=== PATIENT | female | born 1990 | race Caucasian/White ===

== ENCOUNTER 2016-08-26 12:54 | Emergency (ER) | payer OTHER ==
[~2016-08-26] VITALS: Ht 160 cm; Wt 94.0 kg
[~2016-08-26 12:54] MED LIST: BUPR-197 PO; CIPR500T4 PO; CLIN1CAP5 PO; FERR325T PO; LORA-474 PO; LORTA5 PO; PROT40TA PO; Z.0.BCPILL PO
[2016-08-26 13:10] VITALS: BP 145/88; PULSE 110; RESP 16; TEMP 98.4; O2SAT 100
--- NOTE | 2016-08-26 13:26 | PD ---
HPI Chief Complaint: Hypertension Time Seen by Provider: 13:25 Travel History International Travel<30 days: No Contact w/Intl Traveler<30days: No Traveled to known affect area: No History of Present Illness HPI 25-year-old female came to the emergency room with history of hypertension. Patient says that she was having some headache yesterday and she was in [employer] when she decided to check her blood pressure. It was 165 systolic. Patient has had high blood pressure every now and then for past some time. This morning she called her primary care who asked her to go to the emergency room. Patient says currently her headache is almost gone. Yesterday she had some chest pressure with it as well. She is otherwise a healthy person. [facility] Past Medical History Narrative Medical List of her past medical, surgical, social and family history was reviewed from the nursing note. Anxiety: Yes Depression: Yes Cancer: No Cardiovascular Problems: Yes Diabetes: No Diminished Hearing: No Endocrine: No Gastrointestinal Disorders: Yes GERD: Yes Genitourinary: No Hiatal Hernia: Yes Hypertension: Yes Implanted Vascular Access Dvce: No Musculoskeletal: No Neurologic: No Psychiatric: Yes Reproductive: Yes (PCOS) Respiratory: Yes Immunizations Current: Yes Seizures: No Sleep Apnea: Yes (CPAP) Thyroid Disease: No Ulcer: No Tetanus Vaccination: < 5 Years Influenza Vaccination: No ?: Not LMP: 2 weeks ago Past Surgical History Abdominal Surgery: Yes (Gastric sleeve ) Oral Surgery: Yes (TONSILLECTOMY) Pacemaker: No Tonsillectomy: Yes Other Surgery: Yes Social History Alcohol Use: Yes (Occ.) Tobacco Use: No Substance Use: No Allergies-Medications (Allergen,Severity, Reaction): Coded Allergies: Lactose (Verified Allergy, Severe, DENIES ALLERGY 02/11/12/ as infant, ) Comments List of her allergies reviewed from the nursing note. Reported Meds & Prescriptions Reported Meds & Active Scripts Active Lopressor (Metoprolol Tartrate) 50 Mg Tab 25 Mg PO DAILY Reported [ control pill] 1 Tab PO DAILY Ativan (Lorazepam) 0.5 Mg Tab 0.5 Mg PO Q8H PRN Adderall (Amphetamine-Dextroamphetamine) 30 Mg Tab 30 Mg PO DAILY Avoid late evening doses. Space doses at least 4 to 6 hours if more than once/day dosing. Pantoprazole (Pantoprazole Sodium) 40 Mg Tab 40 Mg PO DAILY Wellbutrin Xl 24 HR (Bupropion HCl) 150 Mg Tab 150 Mg PO DAILY Narrative Medication List of her medications reviewed from the nursing note. Review of Systems Except as stated in HPI: all other systems reviewed are Neg Physical Exam Narrative GENERAL: Awake, alert, obese, no obvious distress SKIN: Focused skin assessment warm/dry. HEAD: Atraumatic. Normocephalic. EYES: Pupils equal and round. No scleral icterus. No injection or drainage. ENT: No nasal bleeding or discharge. Mucous membranes pink and moist. NECK: Trachea midline. No JVD. CARDIOVASCULAR: Regular rate and rhythm. No murmur appreciated. RESPIRATORY: No accessory muscle use. Clear to auscultation. Breath sounds equal bilaterally. GASTROINTESTINAL: Abdomen soft, non-tender, nondistended. Hepatic and splenic margins not palpable. MUSCULOSKELETAL: No obvious deformities. No clubbing. No cyanosis. No edema. NEUROLOGICAL: Awake and alert. No obvious cranial nerve deficits. Motor grossly within normal limits. Normal speech. PSYCHIATRIC: Appropriate mood and affect; insight and judgment normal. Data Data Last Documented VS Vital Signs Date Time Temp Pulse Resp B/P Pulse Ox O2 Delivery O2 Flow Rate FiO2 08/26/16 14:24 100 18 169/83 100 Room Air 08/26/16 13:10 98.4 Orders Electrocardiogram (08/26/16 ) Metoprolol Tartrate (Lopressor) (08/26/16 14:00) [facility] Medical Decision Making Medical Screen Exam Complete: Yes Emergency Medical Condition: Yes Medical Record Reviewed: Yes Interpretation(s) Twelve-lead EKG was reviewed by me. Normal sinus rhythm, normal axis, nonspecific ST-T wave changes, LVH. Heart rate of 93 bpm. Differential Diagnosis Hypertension, essential hypertension Narrative Course 2:17 PM patient is not on any medication for her blood pressure. I started her on Lopressor 25 mg by mouth. She'll be discharged home with a prescription for the same. Procedures EKG Prior to Arrival: No Diagnosis Primary Impression: Hypertension Qualified Code: I10 - Essential hypertension Referrals: Primary Care Physician Additional Instructions: Please take the medication as per the prescription direction. Follow-up with the primary care in couple days. Once you are on the medication check your blood pressure is once a day. Return to the ER if the condition worsens or any other new concerns. Med/Other Pt SpecificInfo: Prescription(s) given Scripts Metoprolol Tartrate (Lopressor)50 Mg Tab25 Mg PO DAILY #15 TAB Ref 0 Prov:Delphine Hines MD 08/26/16 Disposition: 01 DISCHARGE HOME Condition: Stable Delphine Hines MD Aug 26, 2016 13:26
[2016-08-26] MEDS ORDERED: BUPR150XL PO (13:27)
[2016-08-26] MEDS ORDERED: LORA-392 PO (13:27)
[2016-08-26] MEDS ORDERED: PANT40TA3 PO (13:27)
[2016-08-26] MEDS ORDERED: ADDE30TA PO (13:27)
[2016-08-26] MEDS ORDERED: Birth control pill PO (13:27)
[2016-08-26] MEDS ORDERED: METOPROLOL TARTRATE 25 MG TAB PO ONE (14:00)
[2016-08-26 14:05] VITALS: BP 167/89; PULSE 92; RESP 16; O2SAT 99
--- NOTE | 2016-08-26 14:15 | EKG ---
Date Performed: 08/26/2016 Time Performed: 14:03:03 PTAGE: 25 years EKG: Sinus rhythm MODERATE VOLTAGE CRITERIA FOR LVH, CONSIDER NORMAL VARIANT BORDERLINE ECG COMPARED TO PRIOR ELECTROC ARDIOGRAM, Rate has increased. PREVIOUS TRACING : 06/10/2008 17.10 DOCTOR: Shoaib Falcon Interpretating Date/Time 08/26/2016 14:14:39
[2016-08-26] MEDS ORDERED: METO-309 PO (14:19)
[2016-08-26 14:24] VITALS: BP 169/83; PULSE 100; RESP 18; O2SAT 100
== END 2016-08-26 14:34 | disposition home or self-care (01) ==
LOC: PHED 12:54
DX: I10 Essential (primary) hypertension (principal); G47.30 Sleep apnea, unspecified
CPT/HCPCS: 93005; 99283

== ENCOUNTER 2016-11-24 05:05 | Inpatient (IN) | payer OTHER ==
[~2016-11-24] VITALS: Ht 160 cm; Wt 102.8 kg
[~2016-11-24 05:05] MED LIST changes: +ADDE30TA PO; -BUPR-197 PO; +BUPR150XL PO; -CIPR500T4 PO; -CLIN1CAP5 PO; -FERR325T PO; +LORA-392 PO; -LORA-474 PO; -LORTA5 PO; +METO-309 PO; +NORT0.5T2 PO; +PANT40TA3 PO; -PROT40TA PO; -Z.0.BCPILL PO
[2016-11-24] MEDS ORDERED: ceFAZolin 2 GM PREMIX 50 ML IV SCH (05:45)
[2016-11-24] MEDS ORDERED: METOPROLOL TARTRATE 25 MG TAB PO PRN (05:45)
[2016-11-24] MEDS ORDERED: CHLORHEXIDINE GLUCONATE 2 % 1 PACK (2 CLOTHS) TOPICAL PRN (05:45)
[2016-11-24] MEDS ORDERED: metroNIDAZOLE 500 MG INJ 100 ML IV SCH (05:45)
[2016-11-24] MEDS ORDERED: APREPITANT 40 MG CAP PO SCH (05:45)
[2016-11-24] MEDS ORDERED: LACTATED RINGER'S 1000 ML IV PRN (05:45)
[2016-11-24] MEDS ORDERED: SODIUM CHLORID 0.9% 500 ML IV PRN (05:45)
[2016-11-24] MEDS ORDERED: SCOPOLAMINE 1.5 MG PATCH T-DERMAL SCH (05:45)
[2016-11-24] MEDS ORDERED: ONDANSETRON HCL 4 MG/2 ML VIAL IV PUSH SCH (05:45)
[2016-11-24] MEDS ORDERED: ACETAMINOPHEN 1000 MG/100 ML 100 ML IV SCH (05:45)
[2016-11-24] MEDS ORDERED: POVIDONE IODINE 5% (ANTISEPSIS KIT) 4 APPLICATIONS EACH NARE PRN (05:45)
[2016-11-24] MEDS ORDERED: INSULIN HUMAN REGULAR 1,000 UNITS/10 ML VIAL SQ PRN (05:45)
[2016-11-24] MEDS ORDERED: LOSA50TA PO (06:11)
[2016-11-24] MEDS ORDERED: LORA1TAB12 PO (06:12)
[2016-11-24] MEDS ORDERED: HYDR25TA5 PO (06:14)
[2016-11-24] MEDS ORDERED: BUPIVACAINE/EPINEPHRINE 0.25% 50 ML VIAL ONE (06:26)
[2016-11-24] MEDS ORDERED: FAMOTIDINE 20 MG/2 ML VIAL ONE (07:04)
[2016-11-24] MEDS ORDERED: MIDAZOLAM HCL 2 MG/2 ML VIAL ONE (07:04)
[2016-11-24] MEDS ORDERED: DEXAMETHASONE SOD PHOS 4 MG/ML VIAL ONE (07:04)
[2016-11-24] MEDS ORDERED: METHYLENE BLUE 10 MG/ML VIAL NG ONE (08:29)
[2016-11-24] MEDS ORDERED: diphenhydrAMINE HCL ELIXIR 12.5 MG/5 ML CUP PO PRN (09:15)
[2016-11-24] MEDS ORDERED: diphenhydrAMINE HCL 50 MG/ML VIAL IV PUSH PRN (09:15)
[2016-11-24] MEDS ORDERED: ONDANSETRON HCL 4 MG/2 ML VIAL IV PUSH PRN (09:15)
[2016-11-24] MEDS ORDERED: ACETAMINOPHEN 325MG/HYDROcodone 7.5MG/15ML UDC PO PRN (09:15)
[2016-11-24] MEDS ORDERED: ENALAPRILAT 1.25 MG/ML VIAL IV PUSH PRN (09:15)
[2016-11-24] MEDS ORDERED: SODIUM CHLORIDE 0.9% FLUSH 10 ML FLUSH PRN (09:15)
[2016-11-24] MEDS ORDERED: Post-op Orders (for Pharmacy) MISC OTHER ONE (09:15)
[2016-11-24] MEDS ORDERED: DO NOT ADM ANY ANTICOAGULANT DRUGS PRN (09:35)
[2016-11-24] MEDS ORDERED: *morphine SULFATE 8 MG/ML PERIprocedure ONLY ONE (09:56)
[2016-11-24] MEDS: D5-1/2 NS + KCL 20 MEQ INJ 1,000 ML IV SCH ×4 (10:00→23:20)
[2016-11-24] MEDS: METOCLOPRAMIDE HCL 10 MG/2 ML VIAL IV PUSH SCH ×3 (10:40→15:26)
[2016-11-24 12:00] VITALS: BP 133/77; PULSE 91; RESP 17; TEMP 97.1; O2SAT 98
[2016-11-24] MEDS ORDERED: LIDOCAINE HCL 1% PF 5 ML AMPULE OTHER ONE (12:00)
[2016-11-24] MEDS ORDERED: PHENYLEPH/NS 1000 MCG/10 ML SYR IV ONE (12:00)
[2016-11-24] MEDS ORDERED: PROPOFOL 200 MG/20 ML AMP IV ONE (12:00)
[2016-11-24] MEDS ORDERED: ROCURONIUM INJ 50 MG/5 ML SYRINGE IV PUSH ONE (12:00)
[2016-11-24] MEDS: metroNIDAZOLE 500 MG INJ 100 ML IV SCH ×2 (12:07→20:14)
[2016-11-24] MEDS: HYDROmorphone HCL PF 1 MG/ML VIAL IV PRN ×2 (12:09→18:17)
[2016-11-24] MEDS: ACETAMINOPHEN 325MG/HYDROcodone 7.5MG/15ML UDC PO PRN (15:25)
[2016-11-24] MEDS: ENOXAPARIN SODIUM 40 MG/0.4 ML SYRINGE SQ SCH (15:27)
[2016-11-24 16:00] VITALS: BP 142/88; PULSE 97; RESP 17; TEMP 96; O2SAT 97
[2016-11-24] MEDS: RESP: ALBUTEROL 2.5 MG/3 ML NEB (SCH) INH ×2 (16:04→19:48)
[2016-11-24 18:43] VITALS: O2SAT 97
[2016-11-24 19:48] VITALS: O2SAT 99
[2016-11-24 20:00] VITALS: BP 177/85; PULSE 71; RESP 17; TEMP 97.1; O2SAT 96
[2016-11-24] MEDS: SODIUM CHLORIDE 0.9% FLUSH 10 ML FLUSH IV FLUSH SCH (20:20)
[2016-11-25] VITALS: BP 142/88; PULSE 94; RESP 16; TEMP 97.6; O2SAT 98
[2016-11-25] MEDS: ACETAMINOPHEN 325MG/HYDROcodone 7.5MG/15ML UDC PO PRN ×4 (00:05→17:51)
[2016-11-25] MEDS: D5-1/2 NS + KCL 20 MEQ INJ 1,000 ML IV SCH ×3 (02:00→10:00)
[2016-11-25] MEDS: RESP: ALBUTEROL 2.5 MG/3 ML NEB (SCH) INH ×5 (03:48→16:00)
[2016-11-25 04:00] VITALS: BP 141/75; PULSE 97; RESP 16; TEMP 97.8; O2SAT 97
[2016-11-25] MEDS: METOCLOPRAMIDE HCL 10 MG/2 ML VIAL IV PUSH SCH (05:01)
[2016-11-25] MEDS: metroNIDAZOLE 500 MG INJ 100 ML IV SCH (05:01)
[2016-11-25 08:00] VITALS: BP 126/80; PULSE 82; RESP 18; TEMP 97.9; O2SAT 96
[2016-11-25 08:00] LABS: AUTOMATED NEUTROPHIL # 6.6 TH/MM3 (1.8-7.7); BASOPHIL % 0.1 % (0.0-2.0); EOSINOPHIL % 0.1 % (0.0-4.0); HEMATOCRIT 33.6 % (35.0-46.0); HEMO FLAGS DIFF FINAL; LYMPHOCYTE # 4.6 TH/MM3 (1.0-4.8); MEAN CELL VOLUME 91.3 FL (80.0-100.0); MEAN CORPUSCULAR HEMOGLOBIN 30.1 PG (27.0-34.0); MONO % 5.2 % (0.0-8.0); NEUT % 55.6 % (16.0-70.0); PLATELET COUNT 242 TH/MM3 (150-450); RED BLOOD COUNT 3.68 MIL/MM3 (4.00-5.30); RED CELL DISTRIBUTION WIDTH 13.5 % (11.6-17.2); WHITE BLOOD COUNT 11.9 TH/MM3 (4.0-11.0)
[2016-11-25 08:26] LABS: BICARBONATE 22.7 MEQ/L (21.0-32.0); MAGNESIUM 1.8 MG/DL (1.5-2.5); POTASSIUM 3.4 MEQ/L (3.5-5.1)
[2016-11-25] MEDS: SODIUM CHLORIDE 0.9% FLUSH 10 ML FLUSH IV FLUSH SCH (09:00)
[2016-11-25] MEDS ORDERED: PANTOPRAZOLE SOD 40 MG DELAYED RELEASE TAB PO SCH (09:00)
[2016-11-25 09:02] VITALS: O2SAT 97
[2016-11-25] MEDS ORDERED: METOCLOPRAMIDE HCL 10 MG/2 ML VIAL IV PUSH PRN (09:15)
[2016-11-25] MEDS ORDERED: LOSARTAN 50 MG TAB PO SCH (11:30)
[2016-11-25] MEDS ORDERED: POTASSIUM CHLOR 10 MEQ PREMIX 100 ML IV SCH ×2 (11:30→14:00)
[2016-11-25] MEDS ORDERED: buPROPion HCL 150 MG SUSTAINED RELEASE TAB PO SCH (11:30)
[2016-11-25 12:00] VITALS: BP 152/96; PULSE 87; RESP 18; TEMP 98.5; O2SAT 97
--- NOTE | 2016-11-25 12:01 | HHI.PR ---
Subjective Subjective Notes Ambulating around room No GI complaints Tolerating oral fluids Objective Vitals/I&O Vital Signs Date Time Temp Pulse Resp B/P (MAP) Pulse Ox O2 Delivery O2 Flow Rate FiO2 11/25/16 09:02 97 11/25/16 08:00 97.9 82 18 126/80 (95) 11/24/16 11:15 Nasal Cannula 3 Labs Laboratory Tests Test 11/25/16 06:30 White Blood Count 11.9 Red Blood Count 3.68 Hemoglobin 11.1 Hematocrit 33.6 Mean Corpuscular Volume 91.3 Mean Corpuscular Hemoglobin 30.1 Mean Corpuscular Hemoglobin Concent 33.0 Red Cell Distribution Width 13.5 Platelet Count 242 Mean Platelet Volume 8.1 Neutrophils (%) (Auto) 55.6 Lymphocytes (%) (Auto) 39.0 Monocytes (%) (Auto) 5.2 Eosinophils (%) (Auto) 0.1 Basophils (%) (Auto) 0.1 Neutrophils # (Auto) 6.6 Lymphocytes # (Auto) 4.6 Monocytes # (Auto) 0.6 Eosinophils # (Auto) 0.0 Basophils # (Auto) 0.0 CBC Comment DIFF FINAL Differential Comment Blood Urea Nitrogen 6 Creatinine 0.68 Random Glucose 106 Calcium Level 8.0 Magnesium Level 1.8 Sodium Level 139 Potassium Level 3.4 Chloride Level 109 Carbon Dioxide Level 22.7 Anion Gap 7 Estimat Glomerular Filtration Rate 106 Cardiovascular: Regular Lungs: Clear Abdomen: Post-op tenderness Extremities: Perfused Wound Wound : Wound Location: Abdomen Appearance: Clean & Dry A/P Assessment and Plan 26yo F POD#1 laparoscopic VSG -Continue with frequent ambulation -Continue to increase fluids as tolerated The exam, history, and the medical decision-making described in the above note were completed with the assistance of the mid-level provider. I reviewed and agree with the findings presented. I attest that I had a [id number] encounter with the patient on the same day, and personally performed and documented my assessment and findings in the medical record. Discharge Planning D/C home later today Karthik Pa Nov 25, 2016 12:01 Marck Blanco MD Dec 22, 2016 12:36
[2016-11-25] MEDS ORDERED: BUPR100CR PO (12:03)
[2016-11-25] MEDS: HYDROmorphone HCL PF 1 MG/ML VIAL IV PRN (12:50)
[2016-11-25] MEDS: ENOXAPARIN SODIUM 40 MG/0.4 ML SYRINGE SQ SCH (12:53)
[2016-11-25 16:00] VITALS: BP 162/105; PULSE 86; RESP 18; TEMP 97.9; O2SAT 97
[2016-11-25] MEDS ORDERED: POTASSIUM CHLORIDE 20 MEQ PWD PACKET PO ONE (18:00)
--- NOTE | 2016-12-14 14:19 | MP ---
cc: DANA BLANCO DATE OF SURGERY: 12/14/2016 DATE OF : 1990 PREOPERATIVE DIAGNOSIS: Reflux unresponsive to medical management with moderate obesity. POSTOPERATIVE DIAGNOSIS: Reflux unresponsive to medical management with moderate obesity. OPERATION: Laparoscopic Rathur-en-Y gastric bypass 100 cm roulen, antegastric, antecolic. SURGEON: Dana Blanco MD. ANESTHESIA General endotracheal anesthesia ESTIMATED BLOOD LOSS Scant FINDINGS Fatty liver SPECIMENS None COMPLICATIONS None OPERATION The patient was brought to the operating room, placed on operating table in supine position. Bilateral sequential inflation device placed on lower extremity general anesthesia instituted. Antibiotics initiated. The abdomen was prepped and draped sterilely. A point in the periumbilical region anesthetized with 0.25% Marcaine with epinephrine. A skin incision was made 5 mm OptiVu port placed under direct vision and pneumoperitoneum created. Under direct vision a 5-mm left upper quadrant, 12 mm left upper quadrant, 12 mm right upper quadrant, and 5 mm right upper quadrant ports were placed. Prior to placement of all ports the skin and peritoneum anesthetized with 0.25% Marcaine with epinephrine. The patient was placed in reverse Trendelenburg position left side up. The Jazzy flex retractor was placed on left lobe of the liver was retracted and the omentum adhesed to the greater curve of the sleeve gastrectomy was taken down with 0.5 cm distal to the GE junction along the lesser curve identified. The lesser sac entered using blunt dissection. The stomach was partitioned horizontally using an echelon flex stapler gold load. At this point the port was in the lower abdomen. The gastrocolic ligament was divided to create a path for the Roulen, the ligament of Treitz was identified. A point 0.40 cm distal identified. The small bowel divided this region using an echelon flex stapler blue load. The distal segment was brought up for a distance of 100 cm, enterotomy created in this region, enterotomy in the biliopancreatic limb and a [id number] stapled jejunojejunostomy created in the usual manner. The mesenteric defect of the jejunojejunostomy closed with 2-0 Surgitek suture in a running manner. The Roulen was then brought up to the new stomach. A gastrotomy created a new stomach enterotomy in the Roulen gastrojejunostomy created stomal opening of 2 cm and a 18 [place] OG tube placed across the anastomosis. The defect then closed with 2-0 Vicryl in a running manner. Prior to placement of a second layer methylene blue instilled through the OG tube, there was no evidence of extravasation, Everseal was then placed over gastrojejunostomy, jejunojejunostomy and all staple lines. The operative field inspected. Hemostasis was assured. The CO2 was released. The Jazzy flex retractor was removed. The CO2 was released, all ports removed. All skin incisions closed with 4-0 Monocryl. The abdominal wall was cleaned and sterile dressing placed. The patient was awakened and taken to recovery room. MD JEREMÍAS Ward/arik /1:20 PM /2:05 PM
== END 2016-11-25 18:10 | disposition home or self-care (01) | DRG 621 ==
LOC: HSDI 05:05 → N07A 11:34
PROVIDERS: ADMIT Surgery; ATTEND Surgery
PROC: 0DB64Z3 Excision of Stomach, Percutaneous Endoscopic Approach, Vertical (ICD-10-PCS; principal; 2016-11-24 07:15)
DX: E66.01 Morbid (severe) obesity due to excess calories (principal); Z68.41 Body mass index [BMI] 40.0-44.9, adult
CPT/HCPCS: 80048; 83735; 85025; 94150; 94664; J0131; J0690; J1100; J1170; J1650; J2250; J2270; J2370; J2405; J2765; J3010; J3480; J7120; J7613; J8501